=== PATIENT | female | born 2005 | race Caucasian/White ===

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

== ENCOUNTER 2023-08-15 14:56 | Emergency (ER) | payer BC ==
[~2023-08-15] VITALS: Ht 175.3 cm; Wt 97.7 kg
[2023-08-15 14:59] VITALS: TEMP 98.1
[2023-08-15] MEDS ORDERED: NORCO 325 MG-51 TAB PO (15:39)
[2023-08-15 16:06] VITALS: BP 120/77; PULSE 81
== END 2023-08-15 16:07 | disposition home or self-care (01) ==
LOC: COL.ER 14:56
DX: S93.402A Sprain of unspecified ligament of left ankle, initial encounter (principal); Z28.310 Unvaccinated for COVID-19; X50.1XXA Overexertion from prolonged static or awkward postures, initial encounter

== ENCOUNTER → 2024-08-11 | Outpatient (CLI) | payer BC ==
[~2024-08-11] MED LIST changes: +NORCO 325 MG-51 TAB PO; +PREDNISONE20 MG PO
== END ==
LOC: COL.RAD 07:30
DX: R10.10 Upper abdominal pain, unspecified (principal)